=== PATIENT | female | born 1970 | race Caucasian/White ===

== ENCOUNTER 2022-01-19 21:14 | Emergency (ER) | payer MEDICAID ==
[~2022-01-19] VITALS: Ht 157.5 cm; Wt 78.0 kg
[2022-01-20] MEDS ORDERED: BACITRACIN ZINC OINT UDPKT TOP ONE (01:30)
[2022-01-20] MEDS ORDERED: HYDROCODONE/ACETAMINOPHEN 5/325MG TABLET PO ONE (01:30)
[2022-01-20] MEDS ORDERED: LIDOCAINE HCL/PF 1% 10 MG/ML 5ML VIAL INFIL ONE (01:30)
[2022-01-20] MEDS ORDERED: TETANUS, DIPHTHERIA, PERTUSSIS VAC/PF 0.5ML (>10YR OLD) IM ONE (01:30)
[2022-01-20] MEDS ORDERED: BO1 TP (04:53)
[2022-01-20] MEDS ORDERED: AMOX1TAB16 MT (04:53)
[2022-01-20] MEDS ORDERED: HYDR-4001 MT (04:53)
[2022-01-20] MEDS ORDERED: POLY1BAN TP (05:17)
[2022-01-20] MEDS ORDERED: [UNRECOGNIZED DRUG - CODE] TP (05:17)
[2022-01-20 05:33] VITALS: BP 108/78
== END 2022-01-20 05:30 | disposition home or self-care (01) ==
LOC: ER 21:14
DX: S81.851A Open bite, right lower leg, initial encounter (principal); S81.852A Open bite, left lower leg, initial encounter; S70.371A Other superficial bite of right thigh, initial encounter; S01.85XA Open bite of other part of head, initial encounter; W54.0XXA Bitten by dog, initial encounter; I10 Essential (primary) hypertension; Y93.89 Activity, other specified; Y92.89 Other specified places as the place of occurrence of the external cause
CPT/HCPCS: 73552; 73590; 90471; 90715; 99284; J3490